=== PATIENT | female | born 1985 | race Caucasian/White ===

== ENCOUNTER 2020-09-15 15:32 | Outpatient (CLI) | payer OTHER, SELFPAY ==
--- NOTE | 2020-09-15 15:30 | ECG_ITS ---
Measurements Intervals [place] Rate: 47 P: 35 MD: 153 QRS: 72 QRSD: 101 T: 43 QT: 449 QTc: 399 Interpretive Statements SINUS BRADYCARDIA BORDERLINE R WAVE PROGRESSION, ANTERIOR LEADS BASELINE ARTIFACT- I, II, III, AVR, AVL, AVF ABNORMAL ECG Electronically Signed On 09-15-2020 15:51:22 CDT by Matthew Dumont D.O.
[2020-09-15 16:05] LABS: Hematocrit 38.8 % (37.0-47.0); Hemoglobin 13.4 g/dL (12.0-15.0)
== END 2020-09-15 15:33 | disposition home or self-care (01) ==
LOC: ANHSURGERY 15:36
PROVIDERS: Anesthesiology; PCP Family Medicine Adolescent Medicine; Visit Provider Surgery Plastic and Reconstructive Surgery
DX: Z01.818 Encounter for other preprocedural examination (principal); L57.4 Cutis laxa senilis; R94.31 Abnormal electrocardiogram [ECG] [EKG]
CPT/HCPCS: 36415; 85014; 85018; 93005

== ENCOUNTER → 2020-09-19 02:44 | Outpatient (CLI) | payer OTHER, SELFPAY ==
[2020-09-19 18:08] LABS: SARS-CoV-2 RNA PCR Negative
== END ==
PROVIDERS: PCP Family Medicine Adolescent Medicine; Visit Provider Surgery Plastic and Reconstructive Surgery
DX: Z01.812 Encounter for preprocedural laboratory examination (principal); Z20.822 Contact with and (suspected) exposure to COVID-19
CPT/HCPCS: C9803; U0003; U0005

== ENCOUNTER 2020-09-22 00:56 | Day surgery (SDC) | payer OTHER, SELFPAY ==
[2020-09-12 11:04] VITALS: BMI 29.5
[2020-09-22] VITALS (12 sets, daily range): BP systolic 104–140; BP diastolic 56–88; PULSE 48–85; RESP 12–18; TEMP 36.4–37.5; O2SAT 96–100
[2020-09-22] MEDS: LACTATED RINGERS 1,000 ML 30 ML IV CONT ×2 (06:30→12:29)
[2020-09-22 06:42] LABS: Urine Cotinine NEGATIVE
--- NOTE | 2020-09-22 06:53 | WPDHPUPDATE1 ---
History and Physical Update Update Date/Time: 09/22/20 06:53 History and Physical has been reviewed, including an updated exam of the patient. There are NO changes in the patient's condition. Risks, benefits, and alternatives have been discussed and questions answered. Patient agrees to proceed with procedure.
--- NOTE | 2020-09-22 07:05 | WPDANESEPPF ---
Anes - Initial Pre Proc Eval Procedure: Operation Date: 09/22/20 07:30 Proposed Procedures p Bilateral Breast Mastopexy - Lyndon Rich MD s Abdominoplasty - Lyndon Rich MD Date/Time: 09/22/20 07:05 Surgeon: Lyndon Rich MD Pre Op Diagnosis: Skin Laxity Patient Data Age: 34 Gender: F Height: 5 ft 6 in Weight: 83 kg Allergies Allergy/AdvReac Type Severity Reaction Status Date / Time Penicillins Allergy Mild HIVES Verified 09/22/20 06:20 Home Medications Medication Instructions Recorded Confirmed Type docusate sodium 100 mg capsule 100 mg PO DAILY #14 cap 09/06/20 09/22/20 Rx ondansetron HCl 4 mg tablet 4 mg PO Q8H #28 tablet 09/06/20 09/22/20 Rx carisoprodol 350 mg tablet 350 mg PO TID PRN #21 tablet 09/11/20 09/22/20 Rx oxycodone-acetaminophen 5 mg-325 1 tablet PO Q6H PRN #15 tablet 09/11/20 09/22/20 Rx mg tablet multivitamin-calcium carb-iron 2,500 tablet PO DAILY 09/12/20 09/22/20 History [[facility] [employer] 1] Laboratory Tests 09/22/20 06:26 Cotinine Negative Patient hx anesthesia problems: none Family hx anesthesia problems: none PMFSH Past Medical History Medical History (Updated 09/22/20 @ 07:05 by Luis Nicolas MD) Arthritis Surgical History Surgical History History of Family History Family History Grandparent Breast cancer Grandparent Cerebrovascular accident Social History Social History Smoking status: Former smoker Alcohol intake: current Substance use: current Substance use type: marijuana Living arrangements: with family Gender identity (if verbalized by the patient): Female Sexual Orientation (if Verbalized by the Patient): Straight or Heterosexual Spiritual care concerns: No Anes - Eval Final PreProcedure Day of Procedure 09/22/20 07:05 Patient weight: overweight Heart: regular rate and rhythm Lungs: clear to auscultation Airway: Mallampati scale class II Neurological: alert and oriented Last oral intake: >/= 8 hours ASA classification: II Emergent: no Anesthetic plan: proceed Anesthesia type and monitoring: general ETT and standard monitoring Informed Consent: The patient's anesthetic plan and its attendant risks and benefits were discussed with the patient/family/POA. Questions were solicited and answers provided to the satisfaction of the patient/family/POA.
--- NOTE | 2020-09-22 07:16 | PM.PROC ---
Procedure Note - Detailed Date of procedure: 09/22/20 Pre-op diagnosis: Skin Laxity Post-op diagnosis: same Procedure performed: 1. Bilateral mastopexy 2. Progressive tension abdominoplasty Description of procedure: She is here today for mastopexy and abdominoplasty. A second-stage she may place an implant. She does need significant lift today and she understands the risks of this. Previously and again today the risks, benefits, alternatives were discussed in extensive detail. I wanted her to be very realistic about the risks involved as well as expectations. We discussed aftercare and what to monitor for. I was very upfront about the risks of wound breakdown leading to loss of skin, open wounds, and need for additional procedures with permanent abdominal deformity. We discussed DVT/PE risks and management. Made sure answered all of her questions to her satisfaction today and consent was obtained. She was marked in the preoperative holding area with their verification. The patient was taken to the operating room placed supine on the operating table. Anesthesia was provided by anesthesiology. A vang catheter was started. She was prepped and draped in a standard sterile fashion. A surgical time-out was taken. Small volume of tumescence was used on breast. I tailor tacked the breast into position and placed in a sitting position. Placed in a sitting position I marked out the nipple-areolar complex at 38 mm. She was placed supine. I de-epithelialized the superior medial pedicle bilateral. I then de-epithelialized the central and inferior portion of the skin. I created a inferior based flap based on the intercostal hired help as an auto augmentation. This was elevated under the nipple-areolar complex and tacked to the chest wall using 2-0 PDS. Medial and lateral pillars were advanced over this. These repaired with 2-0 PDS along the vertical as well as IMF. This followed by 3-0 strata fix along the IMF. 3-0 Monocryl vertically. I then closed the areola also with 3-0 Monocryl. Final closure for everything was 4-0 running subcuticular Monocryl and Steri-Strips. We then proceeded to the abdomen. I placed the patient in a flexed position to verify the upper and lower markings would reach. I then placed her supine. A thorough abdominal examination was completed. Stab incisions were made and used tumescent solution. A 10 blade was used to make the upper incision. I continued dissection down to the level of fascia. Elevated just what was necessary for repair of the diastasis and discontinuous undermining otherwise. I then again flexed the bed to verify the upper skin flap would reach the lower markings without tension. Once verified I placed her supine once again and a 10 blade used to make the lower incision. I elevated up to level the umbilicus and left the umbilicus intact on a well-vascularized stalk. The intervening tissue was removed. A 2 mm blunt cannula and Exparel which was mixed 20 cc in 100 cc for a total volume of 120 cc I injected deep to the fascia bilaterally as well as along the incision lines. I plicated the diastasis recti using 0 PDO stratafix barbed suture. This was in 2 separate layers using 2 separate sutures as well. I repaired around the umbilicus leaving plenty of room for well-vascularized stalk of the umbilicus with 2-0 PDS. The patient was flexed and starting from superior to inferior began plication using 2-0 Vicryl to obliterate all space in a standard progressive tension fashion. At the umbilicus I marked out the location of the skin and inset this with 3-0 Monocryl and 4-0 nylon. I continued the remainder of the plication using 2-0 Vicryl until I reached my lower planned scar line. I trimmed any excess skin of the upper flap making sure this was a tension-free closure. I then approximated using a 3 point suture with 2-0 Vicryl followed by 3-0 stratafix ,running subcuticular 4-0 Monocryl, and tissue glue. Fl
[2020-09-22] MEDS: CLINDAMYCIN 900 MG/D5W 50 ML 900 MG/50 ML PIGGYBACK 50 MG IVPB (07:26)
--- NOTE | 2020-09-22 12:26 | SUR.OPER ---
EBL;100CC, URINE; 200CC
[2020-09-22] MEDS: fentaNYL CITRATE INJ (*CRX) 100 MCG/2 ML VIAL 25 MCG IV PUSH ×4 (12:47→13:04)
[2020-09-22] MEDS: HYDROmorphone HCL INJ (*CRX) 1 MG/ML SYR 0.5 MG IV PUSH ×4 (13:09→14:00)
--- NOTE | 2020-09-22 14:20 | PC.NURSE ---
This patient, Renard Jhaveri, was received from PACU on 09/22/20 at 1420 per bed. Patient/family oriented to unit policies and routines
[2020-09-22] MEDS: LACTATED RINGERS 1,000 ML 125 ML IV CONT (14:44)
[2020-09-22] MEDS: MORPHINE SULFATE (*CRX) 2 MG/ML INJ IV PUSH ×2 (14:48→17:12)
[2020-09-22] MEDS: ONDANSETRON INJ 4 MG/2 ML VIAL IV PUSH (15:54)
[2020-09-22] MEDS: carisoprodoL (*CRX) 350 MG TABLET PO (17:15)
[2020-09-22] MEDS: oxyCODONE/ACETAMINOPHEN (*CRX) 5-325 MG TABLET PO ×2 (19:00→21:00)
[2020-09-22] MEDS: DOCUSATE SODIUM 100 MG CAPSULE PO (20:59)
[2020-09-23] MEDS: oxyCODONE/ACETAMINOPHEN (*CRX) 5-325 MG TABLET PO ×3 (00:20→10:26)
[2020-09-23] MEDS: carisoprodoL (*CRX) 350 MG TABLET PO ×2 (00:22→06:03)
[2020-09-23 04:42] VITALS: BP 110/62; PULSE 73; RESP 15; TEMP 36.8
--- NOTE | 2020-09-23 07:36 | WPDPN ---
Progress Note: A&P Assessment and Plan (1) Skin laxity: Code(s): L57.4 - Cutis laxa senilis Status: Acute Assessment and Plan: She is doing very well after bilateral mastopexy and progressive tension abdominoplasty. Will discharge home. Follow up next week. Today we spent extensive time with her and her discussing the care. What monitor for. Making sure answered all of her questions to their satisfaction. We discussed what is a medical emergency and went to proceed to the emergency room/dial 911. Explained I am available at any time with any questions or concerns (2) Breast ptosis: Code(s): N64.81 - Ptosis of breast Status: Acute (3) Weight loss: Code(s): R63.4 - Abnormal weight loss Status: Acute Time Spent With Patient Time with patient: 15 - 25 minutes Review of Systems Review of Systems: All systems reviewed & are unremarkable except as noted in HPI and below Exam Narrative: Exam Narrative: Bilateral breasts are soft. No signs of infection. No hematoma. No seroma. Good color and capillary refill. Abdomen is healing well. No signs of infection. No hematoma. No seroma. Good color and capillary refill. No calf tenderness. Negative Homans. Objective Data Vital Signs Vital Signs: Vital Signs - 24 hr 09/22/20 12:29 09/22/20 12:35 09/22/20 12:45 Temperature 36.4 C Pulse Rate 85 61 56 L Respiratory Rate 12 14 12 Blood Pressure 135/88 129/86 140/86 Pulse Oximetry 100 100 100 09/22/20 13:00 09/22/20 13:15 09/22/20 13:30 Temperature Pulse Rate 58 L 50 L 75 Respiratory Rate 14 12 16 Blood Pressure 129/78 121/68 124/72 Pulse Oximetry 96 97 98 09/22/20 13:45 09/22/20 14:00 09/22/20 14:30 Temperature 36.4 C Pulse Rate 56 L 61 79 Respiratory Rate 12 14 16 Blood Pressure 135/86 135/56 L 140/80 Pulse Oximetry 98 98 96 09/22/20 18:40 09/22/20 23:00 09/23/20 04:42 Temperature 37.1 C 36.9 C 36.8 C Pulse Rate 72 70 73 Respiratory Rate 16 16 15 Blood Pressure 117/67 104/64 110/62 Pulse Oximetry Intake/Output Intake/Output: Intake & Output 09/20/20 09/21/20 09/22/20 09/23/20 23:59 23:59 23:59 23:59 Intake Total 200 1500 Output Total 100 2150 Balance 100 -650 Meds/Results Medications: Active Medications Generic Name Dose Route Start Last Admin Trade Name Freq PRN Reason Stop Dose Admin Carisoprodol 350 mg 09/22/20 18:00 09/23/20 06:03 Carisoprodol (*Crx) 350 Mg Tablet PO 350 mg Q6HR LEONARD Administration Docusate Sodium 100 mg 09/22/20 21:00 09/22/20 20:59 Docusate Sodium 100 Mg Capsule PO 100 mg Q12HR LEONARD Administration Enoxaparin Sodium 40 mg 09/23/20 07:00 Enoxaparin 40 Mg/0.4 Ml Syringe SUB-Q DAILY@0700 LEONARD Lactated Ringer's 1,000 mls @ 125 mls/hr 09/22/20 12:10 09/22/20 14:44 Lr - Lactated Ringers Iv IV CONT 125 mls/hr .Q8H LEONARD Administration Morphine Sulfate 2 mg 09/22/20 12:06 09/22/20 17:12 Morphine Sulfate (*Crx) 2 Mg/Ml Inj IV PUSH 2 mg Q2H PRN Administration Pain Ondansetron HCl 4 mg 09/22/20 12:06 09/22/20 15:54 Ondansetron Inj 4 Mg/2 Ml Vial IV PUSH 4 mg Q6H PRN Administration Nausea Oxycodone/Acetaminophen 1 - 2 tablet 09/22/20 12:06 09/23/20 00:20 Oxycodone/Acetaminophen (*Crx) 5-325 Mg Tablet PO 1 tablet Q6H PRN Administration Pain Subjective Date/time seen: 09/23/20 07:36 She states she is doing well this morning. No fevers or chills. No nausea vomiting. No shortness of breath. Chest pain. No calf tenderness. She had a little nausea overnight however this is improving. She has tolerated some food. She has ambulated.
--- NOTE | 2020-09-23 07:38 | P.DS_ITS ---
DS: Admitting Diagnosis Admitting Diagnosis Admitting Diagnosis: Skin laxity Breast ptosis DS: Discharge Diagnosis Discharge Diagnosis (1) Skin laxity: Code(s): L57.4 - Cutis laxa senilis Status: Acute (2) Breast ptosis: Code(s): N64.81 - Ptosis of breast Status: Acute (3) Weight loss: Code(s): R63.4 - Abnormal weight loss Status: Acute DS: Summary Hospital Course Hospital Course: She underwent bilateral mastopexy as well as progressive tension abdominoplasty. Postoperatively she has done very well. Nausea has resolved. Tolerating some food. Ambulating. Pain is controlled. Will discharge home. Time Spent with Patient Time attestation: Total time spent providing and/or coordinating discharge services: 20 minutes Exam Narrative: Exam Narrative: Bilateral breasts are soft. No signs of infection. No hematoma. No seroma. Good color and capillary refill. Abdomen is healing well. No signs of infection. No hematoma. No seroma. Good color and capillary refill. No calf tenderness. Negative Homans. Discharge Plan Discharge Patient Disposition: Home, Self-Care Discharge Instructions: POST OPERATIVE DISCHARGE INSTRUCTIONS FOR Breast Lift and Tummy Mejia RICH M.D. [facility] [address] [place] [address] * No driving for 24 hours after anesthesia and while you are taking pain medication. * Take all prescribed medication as directed * Diet as tolerated. * No lifting or activity that raises blood pressure for 48 hours. * Regular walking / ambulation. * No showering until directed to. Once you shower do not take pain medication before showering as the combination of medication and heat may cause you to feel dizzy or pass out. * No pools or tubs for 2 weeks. * Call with any questions or concerns. * No straining or lifting more than 20 pounds for 6 weeks. * Slowly stand up straight as tolerated over the next week. * Continue gentle compression 23 hours per day. * Dressing Care: May shower. If you have any questions or concerns, please call the office . If it is after hours you will be directed to the leather production artisan exchange. Shortness of breath, chest pain, or other medical emergency dial 911 / proceed to the Emergency Room. Stand Alone Forms: General Discharge Instructions Follow-up/Referrals: Lyndon Rich MD [Physician] - 1 Week Discharge Medications: Continued ondansetron HCl [Zofran] 4 mg tablet 4 mg PO Q8H Qty: 28 RF: 0 docusate sodium [Colace] 100 mg capsule 100 mg PO DAILY Qty: 14 RF: 0 carisoprodol [Soma] 350 mg tablet 350 mg PO TID PRN (Reason: muscle pain) Qty: 21 RF: 0 oxycodone-acetaminophen [Percocet] 5-325 mg tablet 1 tablet PO Q6H PRN (Reason: pain) Qty: 15 RF: 0 multivitamin-calcium carb-iron Tablet 2,500 tablet PO DAILY RF: 0
[2020-09-23 08:00] VITALS: BP 116/59; PULSE 78; RESP 18; TEMP 37.4; O2SAT 96
--- NOTE | 2020-09-23 08:23 | WPDANESPN ---
Anes - Prog Note Post-Op Date/Time: 09/23/20 08:23 Cardiovascular status: normal Respiratory status: normal Airway patency: baseline Mental status: baseline Post-Op hydration status: normal Vital Signs: Last Vital Signs Temp 36.8 C 09/23/20 04:42 Pulse 73 09/23/20 04:42 Resp 15 09/23/20 04:42 BP 110/62 09/23/20 04:42 Pulse Ox 96 09/22/20 14:30 Pain Score (VAS): 0/10. Patient resting in bed at time of assessment, appears comfortable. Support person at bedside. I/O: Intake & Output 09/22/20 09/23/20 09/23/20 23:59 07:59 15:59 Intake Total 1500 Output Total 2150 Balance -650 Post-procedural complaints: none Patient Feedback: Patient satisfied with anesthetic care.
[2020-09-23] MEDS: ENOXAPARIN 40 MG/0.4 ML SYRINGE SUB-Q (08:26)
[2020-09-23] MEDS: DOCUSATE SODIUM 100 MG CAPSULE PO (08:27)
--- NOTE | 2020-09-23 10:11 | PC.NURSE ---
Discharge instructions given to pt. including when to see Dr. Rich again. Pt.. verbalized understanding. No questions or concerns voiced.
== END 2020-09-23 10:30 | disposition home or self-care (01) ==
LOC: ANHSURGERY 07:21 → ANHOB2 14:34
PROVIDERS: PCP Family Medicine Adolescent Medicine; Visit Provider Surgery Plastic and Reconstructive Surgery
PROC: (CPT 19316; principal; 2020-09-22 07:30)
PROC: (CPT 19316; 2020-09-22 07:30)
DX: Z41.1 Encounter for cosmetic surgery (principal); L57.4 Cutis laxa senilis; N64.81 Ptosis of breast; R63.4 Abnormal weight loss; Z79.899 Other long term (current) drug therapy; Z87.891 Personal history of nicotine dependence; F12.90 Cannabis use, unspecified, uncomplicated
CPT/HCPCS: 19316; 15830; 15847; 80307; 99199; A9270; C9290; J0171; J1100; J1170; J1580; J1650; J2250; J2270; J2405; J2704; J3010; J7120

== ENCOUNTER 2022-03-05 00:12 | Day surgery (SDC) | payer OTHER, SELFPAY ==
--- NOTE | 2022-03-01 08:51 | PC.NURSE ---
Report to the Outpatient Waiting Room, entrance under the green pavilion located off [facility], at time _0600 on date _03/05/22 . OR Time: ___729 . - You and your visitor will be asked to self-screen and do not enter if you have any COVID symptoms. - Only one visitor and NO children visitors are allowed at this time. - The patient visitor is requested to leave or wait in car when not with patient due to restrictions. - A mask is required within the hospital. Patients may have clear liquids (water, carbonated beverages, clear teas, apple juice) until 3 hours prior to surgery with a maximum of 20 ounces. - No food from midnight until time of surgery - Infants may have breast milk until 4 hours before surgery, infant formula 6 hours prior to surgery. - Children will be allowed to drink immediately following surgery. If applicable, please bring a bottle or sippy cup to assist with drinking. Juice, water, soda, and popsicles are readily available. For infants on formula, please bring formula the day of surgery. Pacifiers are allowed. Take the following medications with a SIP of water the morning of surgery: ___NONE Medications to discontinue per physician ____HAIR/SKIN/NAILS Date to take last dose___03/01/22 Please no make-up, nail cuban, hairspray, perfume, deodorant, or body powder the day of surgery. No jewelry (including any body piercings) or valuables the day of surgery, leave them at home. Please take a shower or bath the night before, or the morning of, surgery with an antibacterial soap. Wear comfortable, loose fitting clothing. Children are encouraged to wear pajamas. - Jewelry must be removed prior to entering the operating room. Rings and piercings that are not removed may be cut off. - The hospital will not accept responsibility for valuables. - Please leave all valuables, including medications, at home the day of surgery. If you are going home after surgery, a licensed transport truck driver must drive you home. - NO public transportation without another adult. - We recommend that an adult stay with you for 24 hours following discharge. - We also recommend that you do not drive, make important decision, drink alcoholic beverages, or take any drugs that were not prescribed by your health care provider for at least 24 hours after your discharge time. For Pediatric surgeries, we recommend two adults accompany the child home (only one inside the building at this time). Follow any additional instructions given to you from your surgeon. If you or anyone in your household have experienced Covid symptoms in the past week, please notify your surgeon or the nurse liaison at the phone number below for possible testing. Telephone instructions given to __PATIENT and asked if any additional questions and then verbalized understanding. Patient advised to call surgeon office or pre surgery nurse liaison [phone] if any additional questions.
[2022-03-01 08:59] VITALS: BMI 28.4
[2022-03-05] VITALS (8 sets, daily range): BP systolic 110–125; BP diastolic 60–77; PULSE 45–62; RESP 12–20; TEMP 36.9; O2SAT 97–100
[2022-03-05] MEDS: ACETAMINOPHEN 500 MG TABLET 1000 MG PO (06:37)
[2022-03-05] MEDS: LACTATED RINGERS 1,000 ML 30 ML IV CONT ×2 (06:45→09:13)
[2022-03-05] MEDS: KETOROLAC 15 MG/ML VIAL (*BKC) IV PUSH (06:45)
--- NOTE | 2022-03-05 07:10 | WPDANESEPPF ---
Anes - Initial Pre Proc Eval Procedure: Operation Date: 03/05/22 07:30 Proposed Procedures p Laparoscopic Bilateral Salpingectomy, Left Oophorectomy, Hysteroscopy, Dilation and Curettage with Cammy Endometrial Ablation - Juancarlos Barreto MD Date/Time: 03/05/22 07:10 Surgeon: Juancarlos Barreto MD Pre Op Diagnosis: menorrhagia, left ovarian cyst Patient Data Age: 36 Gender: F Height: 1.68 m Weight: 84.2 kg Allergies Allergy/AdvReac Type Severity Reaction Status Date / Time Penicillins Allergy Mild HIVES Verified 03/05/22 06:35 Home Medications Medication Instructions Recorded Confirmed Type multivitamin with minerals 1 tablet PO DAILY 03/01/22 03/05/22 History (Hair,Skin and Nails tablet) Patient hx anesthesia problems: none Family hx anesthesia problems: none Results Review: All pre-operative results and documents have been reviewed as part of the pre-operative evaluation. [facility] Past Medical History Medical History Arthritis Surgical History Surgical History (Updated 10/18/21 @ 15:27 by Bria Renner MA) History of Hx of abdominoplasty Family History Family History (Updated 10/18/21 @ 15:28 by Bria Renner MA) Grandparent Breast cancer Grandparent Cerebrovascular accident Social History Social History (Updated 10/18/21 @ 15:30 by Bria Renner MA) Years smoked: 8 Smoking status: Former smoker Tobacco type: cigarettes Second hand tobacco smoke exposure: No Smoking end date: 06/30/06 Alcohol intake: current Drinks per week: 2 Alcohol use details: Occasional Substance use: current Substance use type: does not use Other substance usage details: VAPES THC Living arrangements: with family Gender identity (if verbalized by the patient): Female Sexual Orientation (if Verbalized by the Patient): Straight or Heterosexual Spiritual care concerns: No Agree to blood products: Yes Anes - Eval Final PreProcedure Day of Procedure 03/05/22 07:10 Patient weight: obese Heart: regular rate and rhythm Lungs: clear to auscultation Airway: Mallampati scale class II Neurological: alert and oriented Last oral intake: >/= 8 hours ASA classification: II Emergent: no Anesthetic plan: proceed Anesthesia type and monitoring: general ETT and standard monitoring Results Review: All pre-operative results and documents have been reviewed as part of the pre-operative evaluation. Informed Consent: The patient's anesthetic plan and its attendant risks and benefits were discussed with the patient/family/POA. Questions were solicited and answers provided to the satisfaction of the patient/family/POA.
--- NOTE | 2022-03-05 07:38 | WPDHPUPDATE1 ---
History and Physical Update Update Date/Time: 03/05/22 07:38 History and Physical has been reviewed, including an updated exam of the patient. There are NO changes in the patient's condition. Risks, benefits, and alternatives have been discussed and questions answered. Patient agrees to proceed with procedure.
--- NOTE | 2022-03-05 07:43 | PM.IMHP ---
H&P: HPI History of Present Illness Date/Time: 03/05/22 07:43 Chief Complaint: Menorrhagia, pelvic pain, ovarian cyst Narrative: This patient is a 36-year-old female with a suspicious ovarian cyst, menorrhagia, unwanted fertility. We have agreed to perform laparoscopic bilateral salpingectomy left oophorectomy, also endometrial ablation. She understands risks. She understands that injuries may occur that result in hospitalization, more surgery, severe illness. She understands there is risk of hemorrhage and infection. She denies any nausea, vomiting, fever, chills. She denies any chest pain or shortness of breath. Review of Systems Review of Systems: All systems reviewed & are unremarkable except as noted in HPI and below Constitutional: Constitutional: Denies chills, Denies fatigue, Denies fever(s) and Denies weakness Eyes: Eyes: Denies blurry vision, Denies change in vision, Denies loss of peripheral vision, Denies loss of vision, Denies other visual disturbances and Denies eye pain ENT: Denies vertigo, Denies dizziness, Denies hearing loss, Denies mouth pain, Denies nasal obstruction, Denies neck mass and Denies neck pain Cardiovascular: Cardiovascular: Denies chest pain, Denies diaphoresis, Denies syncope, Denies leg edema and Denies dyspnea Respiratory: Respiratory: Denies chest congestion, Denies cough, Denies hemoptysis, Denies dyspnea and Denies wheezing Gastrointestinal: Gastrointestinal: Denies abdominal pain, Denies constipation, Denies diarrhea, Denies nausea and Denies vomiting Genitourinary: Genitourinary: Denies hematuria, Denies change in libido, Denies nocturia, Denies genital lesions, Denies flank pain and Denies urinary urgency Musculoskeletal: Musculoskeletal: Denies abnormal gait, Denies back pain, Denies myalgias, Denies arthralgias, Denies joint swelling, Denies muscle weakness and Denies neck pain Integumentary/Breasts: Skin/Breast: Denies swelling, Denies breast pain, Denies breast mass, Denies dry skin, Denies nipple discharge, Denies unusual bruising and Denies jaundice Neurologic: Denies Neuro-related abnormal movements, Denies Abnormal speech present, Denies abnormal gait, Denies behavioral changes, Denies confusion, Denies vertigo, Denies dizziness, Denies syncope, Denies loss of vision, Denies memory loss, Denies convulsions and Denies weakness Psychiatric: Psychiatric: Denies abnormal sleep pattern, Denies behavioral changes, Denies change in libido, Denies confusion, Denies depression, Denies anhedonia and Denies memory loss Endocrine: Endocrine: Reports no additional endocrine complaints, Denies change in libido and Denies fatigue Hematologic/Lymphatic: Hematologic/Lymphatic: Reports no additional hematologic/lymphatic complaints Allergic/Immunologic: Allergic/Immunologic: Reports no additional allergic/immunologic complaints and Denies wheezing PMFSH Past Medical History Medical History (Updated 03/05/22 @ 07:45 by Juancarlos Barreto MD) Arthritis Surgical History Surgical History (Updated 10/18/21 @ 15:27 by Bria Renner MA) History of Hx of abdominoplasty Family History Family History (Updated 10/18/21 @ 15:28 by Bria Renner MA) Grandparent Breast cancer Grandparent Cerebrovascular accident Social History Social History (Updated 10/18/21 @ 15:30 by Bria Renner MA) Years smoked: 8 Smoking status: Former smoker Tobacco type: cigarettes Second hand tobacco smoke exposure: No Smoking end date: 06/30/06 Alcohol intake: current Drinks per week: 2 Alcohol use details: Occasional Substance use: current Substance use type: does not use Other substance usage details: VAPES THC Living arrangements: with family Gender identity (if verbalized by the patient): Female Sexual Orientation (if Verbalized by the Patient): Straight or Heterosexual Spiritual care concerns: No Agree to blood products: Yes Meds Home Medications
[2022-03-05] MEDS: fentaNYL CITRATE INJ (*CRX) 100 MCG/2 ML VIAL 25 MCG IV PUSH ×2 (09:28→09:36)
--- NOTE | 2022-03-05 09:29 | W.PM.PROC2 ---
Procedure Note - Detailed Date of Procedure 03/05/22 Pre-op Diagnosis menorrhagia, left ovarian cyst, female sterilization Post-op Diagnosis Same (Endometriosis, pelvic adhesions) Procedure Performed Laparoscopic left oophorectomy, bilateral salpingectomy, adhesiolysis, 30 minutes of adhesiolysis Surgeon Juancarlos Barreto MD Anesthesia General Indications Pelvic pain Description of Procedure The patient was taken to the operating room. She was prepped and draped in the dorsal lithotomy position after induction general anesthesia. A 5 mm incision was made with a scalpel on the abdominal skin in the left upper quadrant of the abdomen. A 5 mm trocar was inserted into the intra-abdominal cavity under direct visualization the scope. In the same fashion a 11 mm left lower quadrant trocar was inserted and a 11 mm infraumbilical trocar was inserted. Bilateral salpingectomy was performed in the usual fashion using LigaSure cautery. The mesosalpinx adjacent to the tube was cauterized from a lateral to medial direction and the tube was transected near the cornua. The tube taken out the left lower quadrant trocar site. Left oophorectomy was performed in conjunction with 30 minutes of adhesiolysis. The left ovary was scarred down to the round ligament and the lateral pelvic sidewall as well as the rectum. Some adhesiolysis was performed between the rectum and the uterus. When the ovaries amputated was placed in endobag and taken out the left lower quadrant trocar site. Cautery was used to make the surgical site hemostatic. The pelvis was irrigated. The pneumoperitoneum was reduced. The trocars were removed. Skin was closed with subcuticular 4 0 Monocryl The patient's incisions were covered with Dermabond. She was taken recovery room in stable condition. Sponge lap and needle counts were correct x2. Estimated Blood Loss -50.0 Pathology Yes Complications No immediate complications Condition Stable Disposition Same day
[2022-03-05] MEDS: oxyCODONE HCL (*CRX) 5 MG TAB IR PO (10:21)
== END 2022-03-05 11:38 | disposition home or self-care (01) ==
PROVIDERS: PCP Family Medicine Adolescent Medicine; Visit Provider Obstetrics & Gynecology
PROC: 0UDB8ZZ Extraction of Endometrium, Via Natural or Artificial Opening Endoscopic (ICD-10-PCS; CPT 58558; principal; 2022-03-05 07:30)
DX: N92.0 Excessive and frequent menstruation with regular cycle (principal); D27.1 Benign neoplasm of left ovary; Z30.2 Encounter for sterilization; N83.8 Other noninflammatory disorders of ovary, fallopian tube and broad ligament; F12.90 Cannabis use, unspecified, uncomplicated; E66.9 Obesity, unspecified; Z68.30 Body mass index [BMI] 30.0-30.9, adult; Z87.891 Personal history of nicotine dependence
CPT/HCPCS: 58661; 88305; A9270; J1100; J1170; J1885; J2250; J2405; J2704; J2710; J3010; J7030; J7120

== ENCOUNTER → 2022-09-18 12:12 | Outpatient (CLI) | payer OTHER, SELFPAY ==
--- NOTE | ~2022-09-18 | XR_ITS ---
AP and lateral views of the left hip Clinical history: Pain Findings: No acute fracture or dislocation is seen. Osseous alignment is anatomic. The left hip joint is preserved. Left SI joint are intact. Soft tissues are unremarkable. Impression: No significant abnormality is seen. Reviewed, dictated and finalized at [facility]. Impression: No significant abnormality is seen.
== END ==
PROVIDERS: PCP Family Medicine Adolescent Medicine; Visit Provider Physician Assistant
DX: M25.552 Pain in left hip (principal)
CPT/HCPCS: 73502

== ENCOUNTER 2025-03-18 15:09 | Outpatient (CLI) | payer OTHER, SELFPAY ==
--- OUTSIDE RECORDS SUMMARY | 2013-03-16 04:45 | XMS_ITS | Continuity of Care Document ---
Author Organization [facility] Address [address] [place] [address] Phone Care Team Providers Care Ergonomics Consultant Name Role Phone Ginette MORENO, Willis Unavailable Unavailable Advance Directives Directive Yes / No Effective Date File Name No Information Encounters Encounter Description Practice Location Reason(s) For Visit Diagnoses Date Provider Providers Copied on Encounter [facility], [address], [place], [place], [address], [place] tel:[phone] [facility] No Information Ginette Pedro. [address] , [place], [place], [id number], [place]. tel:[phone] Referring Provider: Cyrus Agarwal, [address] [facility] [address], [place], [address]. tel:[phone] Family History Family Member Type Diagnosis Age At Onset No Information Payers Payer name Insurance type Covered constitution party ID Authoriza tiflaco(s) [place] [employer] [facility] [id number] Social History Type Description Quantity Date Captured Comments Sex Female Smoking Status No Information Chief Complaint And Reason For Visit No Information Reason For Referral Reason For Referral No Information History Of Present Illness Encounter Date Complaint History Of Prese nt Illness No Information Functional Status Date Functional Assessmen t No Information Instructions Date Instruction Additional Infor mation No Information Assessments Type Assessment Date No Information Patient Care Teams Name Effective Dates (start - stop) Status Members No Information
--- NOTE | ~2025-03-18 | MM_ITS ---
EXAMINATION: MM screening rodo BI w [facility] HISTORY: Screening TECHNIQUE: Craniocaudal and mediolateral oblique 3-D tomosynthesis images were obtained and synthetic 2-D images were generated. CAD analysis was submitted and interpreted. COMPARISON: 12/15/2023 BREAST PARENCHYMAL COMPOSITION: The breasts are heterogeneously dense, which may obscure small masses. FINDINGS: There is no evidence of suspicious mass, calcification, or architectural distortion to suggest malignancy in either breast. IMPRESSION: 1. No mammographic evidence of malignancy. 2. Recommend routine screening mammography in one year. BI-RADS Category 1: Negative Reviewed, dictated and finalized at location B.
--- OUTSIDE RECORDS SUMMARY | 2025-03-18 15:12 | XMS_ITS | Clinical Summary ---
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 Gender Identity Not on file Sexual Orientation Not on file Plan of Treatment Health Maintenance Due Date Last Done Comments Hepatitis C Virus (HCV) Screening 1985 TdaP Immunization 1985 Hepatitis B Immunization (1 of 3 - 19+ 3-dose series) 11/09/2002 Pap Smear 11/09/2004 Human Papillomavirus (HPV) Immunization (1 - 3-dose SCDM series) 11/09/2010 Cervical Cancer Screening (CCS) 11/09/2013 HPV/Cotest 11/09/2013 SARS-COV-2 Immunization ( season) 2024 09/07/2020 Influenza Immunization (#1) 2025 Respiratory Syncytial Virus (RSV) Immunization (Adult) (1 - 1-dose 75+ series) 11/09/2058 Meningococcal Immunization (ACWY) Aged Out No longer eligible based on patient's age to complete this topic Pneumococcal Immunization Combined Aged Out No longer eligible based on patient's age to complete this topic Rotavirus Immunization Aged Out No lo nger eligible based on patient's age to complete this topic
--- OUTSIDE RECORDS SUMMARY | 2025-03-18 15:12 | XMS_ITS | Clinical Summary ---
Author Organization [facility] Address [address] [place] [address] Care Team Providers Care Compensation And Benefits Analyst Name Role Phone Coco Bedolla APRN-FERMIN Primary Care Pro vider Source Comments [facility],non-owned Affiliates and Associated Physician Practices is amultiple site organization consisting of ambulatory clinics and hospital sitesin [place], [place], [place] and [place]. This disclosure is being madepursuant to the Care Everywhere program and may not contain all information available regarding this patient. Last updated 18.[facility] Allergies Active Allergy Reactions Criticality Noted Date Comments Penicillins Rash Medium 05/01/2021 Medications * Be aware that medications may not be up to date on this document. Alwaysverify current medications with the patient. DOK 100 MG capsule Take 100 mg by mouth once daily 09/06/2020 Active carisoprodol (SOMA) 350 MG tablet Take 1 tablet by mouth 3 times daily as needed 09/11/2020 Active Family History Medical History Relation Name Comments Thyroid Disease Maternal Aunt CVA Maternal Grandfather Depression Mother Cancer - Breast Paternal Grandmother Relation Name Status Comments Maternal Aunt Maternal Grandfather Mother Paternal Grandmother Social History Tobacco Use Types Packs/Day Years Used Date Smoking Tobacco: Former Cigarettes Smokeless Tobacco: Never Comments:Quit in 2003 Alcohol Use Standard Drinks/Week Comments Yes 1 (1 standard drink = 0.6 oz pur e alcohol) Comments No Sex and Gender Information Value Date Recorded Sex Assigned at Not on file 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 Gender Identity Not on file Sexual Orientation Not on file Last Filed Vital Signs Vital Sign Reading Time Taken Comments Blood Pressure 112/80 05/01/2021 11:07 AM CDT Pulse - - Temperature - - Respiratory Rate - - Oxygen Saturation - - Inhaled Oxygen Concentration - - Weight 81.9 kg (180 lb 9.6 oz) 05/01/2021 11:07 AM CDT Height 167.6 cm (5' 6) 05/01/2021 11:07 AM CDT Body Mass Index 29.15 05/01/2021 11:07 AM CDT Plan of Treatment Health Maintenance Due Date Last Done Comments LIPID TESTING 1985 MAMMOGRAM 1985 HIV SCREENING 11/09/1998 HEPATITIS C SCREENING 11/05/2001 DTAP/TDAP/TD VACCINES (1 - Tdap) 11/09/2002 HEPATITIS B VACCINE (1 of 3 - 19+ 3-dose series) 11/09/2002 HPV VACCINE (1 - 3-dose SCDM series) 11/09/2010 DEPRESSION SCREENING 06/30/2024 COVID-19 VACCINE (1 - 2023-2 5 season) 2025 INFLUENZA VACCINE (#1) 2025 ZOSTER VACCINE (1 of 2) 11/09/2033 HIB VACCINE Aged Out No longer eligi ble based on patient's age to complete this topic MENINGOCOCCAL (Group B) VACC INE SHARED DECISION-MAKING Aged Out No longer eligibl e based on patient's age to complete this topic MENINGOCOCCAL GROUPS A/C/Y/W VACCINE Aged Out No longer eligible b ased on patient's age to complete this topic PNEUMOCOCCAL VACCINE Aged Out No long er eligible based on patient's age to complete this topic Insurance [facility] Care Teams Compensation And Benefits Analyst Relationship Specialty Start Date End Date Coco Bedolla, STEEL WHEEL ENGRAVER-HUMAN GEOGRAPHY INSTRUCTOR [address] [place] [address] PCP - General 05/01/21
== END 2025-03-18 15:10 | disposition home or self-care (01) ==
LOC: ANHFOHIMG 15:10
PROVIDERS: Visit Provider Nurse Practitioner
DX: Z12.31 Encounter for screening mammogram for malignant neoplasm of breast (principal)
CPT/HCPCS: 77063; 77067